=== PATIENT | male | born 1955 | race Caucasian/White ===

== ENCOUNTER 2021-11-29 12:15 | Outpatient (CLI) | payer OTHER, SELFPAY ==
--- NOTE | ~2021-11-29 | XR_ITS ---
EXAMINATION: XR hip RT min 2V DATE: 11/29/2021 12:50 INDICATION: Right hip pain. TECHNIQUE: 2 views of right hip were obtained. COMPARISON: None. FINDINGS: Bone alignment is normal. No fracture. There is advanced right hip osteoarthritis including flattening of superior femoral head. IMPRESSION: 1. Advanced right hip osteoarthritis. Reviewed, dictated and finalized at location E. CAL IMAGING TECHNOLOGIST
--- NOTE | ~2021-11-29 | XR_ITS ---
EXAMINATION: XR femur RT min 2V DATE: 11/29/2021 12:51 INDICATION: Right hip pain. TECHNIQUE: 2 views of right femur on 4 radiographs were obtained. COMPARISON: None. FINDINGS: Bone alignment is normal. No fracture. There is advanced right hip osteoarthritis. There is mild tricompartmental osteoarthritis of the knee. No knee joint effusion. IMPRESSION: 1. Advanced right hip osteoarthritis and mild right knee osteoarthritis. Reviewed, dictated and finalized at location E. STRIAL RELATIONS COMMISSIONER
== END 2021-11-29 12:16 | disposition home or self-care (01) ==
PROVIDERS: PCP Physician Assistant; Visit Provider Physician Assistant
DX: M16.11 Unilateral primary osteoarthritis, right hip (principal); M17.11 Unilateral primary osteoarthritis, right knee
CPT/HCPCS: 73502; 73552

== ENCOUNTER 2023-02-24 10:21 | Outpatient (CLI) | payer MEDICARE, SELFPAY ==
--- NOTE | 2023-02-24 10:41 | ECG_ITS ---
Measurements Intervals [place] Rate: 81 P: 47 ND: 161 QRS: -12 QRSD: 119 T: 32 QT: 357 QTc: 415 Interpretive Statements SINUS RHYTHM INTRAVENTRICULAR CONDUCTION DELAY BASELINE ARTIFACT- V4-V6 BORDERLINE ECG NO PREVIOUS ECG AVAILABLE FOR COMPARISON Electronically Signed On 02-24-2023 11:05:59 CDT by Julio Sanders D.O.
[2023-02-24 11:02] LABS: Basophils Absolute Auto 0.1 K/mm3 (0.0-0.1); Basophils Percent Auto 0.8 % (0.2-1.2); Eosinophils Absolute Auto 0.3 K/mm3 (0-0.3); Eosinophils Percent Auto 2.2 % (0-4.4); Hematocrit 39.3 % (42.0-52.0); Hemoglobin 12.2 g/dL (14.0-18.0); Immature Granulocyte Absolute 0.04 K/mm3 (0.00-0.031); Immature Granulocyte Percent A 0.3 % (0-0.5); Lymphocytes Absolute Auto 2.37 K/mm3 (0.9-3.2); Lymphocytes Percent Auto 19.9 % (18.3-44.2); Mean Corpuscular Hemoglobin 28.9 pg (26-34); Mean Corpuscular Volume 93.1 fl (80-100); Mean Platelet Volume 8.9 fl (7.4-10.4); Monocytes Absolute Auto 0.8 K/mm3 (0.1-0.6); Monocytes Percent Auto 7.1 % (2.6-8.5); Neutrophils Absolute Auto 8.3 K/mm3 (1.3-6.7); Neutrophils Percent Auto 69.7 % (45.5-73.1); Platelet Count Result 406 k/mm3 (150-375); Red Blood Count 4.22 M/mm3 (4.6-6.20); Red Cell Distribution Width 13.7 % (11.5-14.5); White Blood Count 11.9 K/mm3 (4.5-10.0)
[2023-02-24 11:10] LABS: Appearance Urine Clear (Clear); Bilirubin Urine Negative (Negative); Blood Urine Negative (Negative); Color Urine Yellow (Yellow); Glucose Urine UA Negative (Negative); Ketones Urine Negative (Negative); Leukocyte Esterase Ur Negative LEU/UL (Negative); Nitrate Urine Negative (Negative); Protein Urine Negative (Negative); Urobilinogen Urine 0.2 mg/dL (<2.0); pH Urine 5.5 (5.0-9.0)
[2023-02-24 11:14] LABS: Anion Gap 5 mmol/L (8-16); Blood Urea Nitrogen 17 mg/dL (9-20); Calcium 9.2 mg/dL (8.4-10.2); Carbon Dioxide 32 mmol/L (22-30); Chloride 102 mmol/L (98-107); Estimated Glomerular Filt Rate > 60; Glucose 98 mg/dL (65-110); Sodium 139 mmol/L (137-145)
[2023-02-24 11:21] LABS: Add Urine Microscopic? NO
== END 2023-02-24 10:22 | disposition home or self-care (01) ==
PROVIDERS: PCP Physician Assistant; Visit Provider Orthopaedic Surgery
DX: M17.11 Unilateral primary osteoarthritis, right knee (principal); I10 Essential (primary) hypertension; I45.9 Conduction disorder, unspecified
CPT/HCPCS: 36415; 80048; 81003; 85025; 93005

== ENCOUNTER 2023-02-25 09:42 | Outpatient (CLI) | payer MEDICARE, SELFPAY ==
[2023-02-25 10:53] LABS: Albumin Level 4.2 g/dL (3.5-5.1)
[2023-02-25 10:57] LABS: Prothrombin Time 13.2 Seconds (11.1-14.7)
[2023-02-25 10:58] LABS: Partial Thromboplastin Time 27.7 SECONDS (22.3-36.8)
[2023-02-25 11:02] LABS: Urine Cotinine NEGATIVE
[2023-02-25 11:45] LABS: Hemoglobin A1C 5.8 % (<5.7)
== END 2023-02-25 09:43 | disposition home or self-care (01) ==
LOC: ANHSURGERY 09:47
PROVIDERS: PCP Physician Assistant; Visit Provider Orthopaedic Surgery
DX: M16.9 Osteoarthritis of hip, unspecified (principal); Z01.818 Encounter for other preprocedural examination
CPT/HCPCS: 80307; 82040; 83036; 85610; 85730; 87081

== ENCOUNTER 2023-03-12 01:46 | Day surgery (SDC) | payer MEDICARE, MEDICAID, SELFPAY ==
--- NOTE | 2023-02-25 09:50 | PC.NURSE ---
PRE-OP INSTRUCTIONS, PLEASE READ CAREFULLY Report to the Outpatient Waiting Room, entrance under the green pavilion located off [facility], at time _0600_ on date _03/12/23_. Planned Procedure Time: _0730_. PACK A SMALL OVERNIGHT BAG AND LEAVE IN THE CAR ALONG WITH YOUR WALKER IF YOU GET ONE BEFORE SURGERY Time changes happen often and if your time is changed the preop area will call you the afternoon before. - You and your visitor will be asked to self-screen and do not enter if you have any COVID symptoms. - A mask is optional within the hospital at this time. -VISITING HOURS 8AM-8PM Patients may have clear liquids (water, carbonated beverages, clear teas, apple juice) until 3 hours prior to surgery (0430 AM) with a maximum of 20 ounces. - No food from midnight until time of surgery Take the following medications with a SIP of water the morning of surgery: _AMLODIPINE_ DO NOT STOP ANY OF YOUR OTHER PRESCRIPTION MEDICATIONS PRIOR TO SURGERY ?EXCEPT THE FOLLOWING Medications to discontinue _MELOXICAM PER DR. LOCO'S INSTRUCTIONS_ Date to take last dose Please no make-up, nail ukrainian, hairspray, perfume, deodorant, or body powder the day of surgery. No jewelry (including any body piercings) or valuables the day of surgery, leave them at home. Please take a shower or bath the night before, or the morning of, surgery with an antibacterial soap. Wear comfortable, loose fitting clothing. - Jewelry must be removed prior to entering the operating room. Rings and piercings that are not removed may be cut off. - The hospital will not accept responsibility for valuables. - Please leave all valuables, including medications, at home the day of surgery. If you are going home after surgery, a licensed coal tram driver must drive you home. - NO public transportation without another adult if you receive anesthesia. - We recommend that an adult stay with you for 24 hours following discharge. - We also recommend that you do not drive, make important decision, drink alcoholic beverages, or take any drugs that were not prescribed by your health care provider for at least 24 hours after your discharge time. Follow any additional instructions given to you from your surgeon. CHLORHEXIDINE GLUCONATE (HIBICLENS) SHOWER DIRECTED *SOLAR ELECTRIC INSTALLER FROM PHARMACY If you or anyone in your household have experienced Covid symptoms in the past week, please notify your surgeon or the nurse liaison at the phone number below for possible testing. Instructions given to _PATIENT_and asked if any additional questions and then verbalized understanding. Patient advised to call surgeon office or pre surgery nurse liaison [phone] if any additional questions.
[2023-02-25 10:09] VITALS: BP 154/86; PULSE 80; RESP 20; TEMP 36.9; O2SAT 100; BMI 27.1
[2023-03-12] VITALS (14 sets, daily range): BP systolic 105–177; BP diastolic 63–85; PULSE 74–108; RESP 11–24; TEMP 35.7–36.8; O2SAT 96–100
--- NOTE | ~2023-03-12 | XR_ITS ---
EXAMINATION: XR hip RT min 2V DATE: 03/12/2023 10:30 INDICATION: Postoperative evaluation following right total hip arthroplasty] TECHNIQUE: Anteroposterior and lateral views of the right hip were obtained. COMPARISON: 02/24/2023 FINDINGS: Interval placement of a right total hip arthroplasty which appears well seated in near anatomic align ment. Expected subcutaneous gas in the postoperative bed. No fractures identified. IMPRESSION: 1. Right total hip arthroplasty, negative for postoperative purposes. Reviewed, dictated and finalized at location A.
[2023-03-12] MEDS: ACETAMINOPHEN 500 MG TABLET 1000 MG PO (06:26)
[2023-03-12] MEDS: LACTATED RINGERS 1,000 ML 30 ML IV CONT ×2 (06:40→10:43)
[2023-03-12 06:42] LABS: Mean Platelet Volume 8.8 fl (7.4-10.4); Platelet Count Result 358 k/mm3 (150-375)
--- NOTE | 2023-03-12 06:44 | P.PNAN_ITS ---
Anes - Initial Pre Proc Eval Procedure: Operation Date: 03/12/23 07:30 Proposed Procedures p Right Total Hip Arthroplasty - Tien Calderon MD Date/Time: 03/12/23 06:44 Surgeon: Tien Calderon MD Pre Op Diagnosis: Rt Hip DJD Patient Data Age: 67 Gender: M Height: 1.65 m Weight: 73.9 kg Last Vital Signs Temp 36.9 C 02/25/23 10:09 Pulse 80 02/25/23 10:09 Resp 20 02/25/23 10:09 BP 154/86 H 02/25/23 10:09 Pulse Ox 100 02/25/23 10:09 O2 Del Method Room Air 02/25/23 10:09 Allergies Allergy/AdvReac Type Severity Reaction Status Date / Time No Known Allergies Allergy Unknown Unknown Verified 03/12/23 06:14 Home Medications Medication Instructions Recorded Confirmed Type amlodipine 10 mg tablet 10 mg PO DAILY 02/25/23 03/12/23 History atorvastatin 40 mg tablet 40 mg PO DAILY 02/25/23 03/12/23 History chlorhexidine gluconate 4 % 1 applic topical ONCE #237 mL 02/25/23 03/12/23 Rx topical liquid (Hibiclens) hydrochlorothiazide 12.5 mg tablet 12.5 mg PO DAILY 02/25/23 03/12/23 History lisinopril 40 mg tablet 40 mg PO DAILY 02/25/23 03/12/23 History meloxicam 15 mg tablet 15 mg PO DAILY 02/25/23 03/12/23 History Laboratory Tests 03/12/23 06:23 WBC Pending Plt Count Pending MPV Pending Patient hx anesthesia problems: none Family hx anesthesia problems: none Results Review: All pre-operative results and documents have been reviewed as part of the pre- operative evaluation. [facility] Past Medical History Medical History (Updated 03/12/23 @ 06:45 by Fransisco Taylor MD) Broken arm (~1997) Hernia (~1999) HTN (hypertension) Hyperlipidemia Family History Family History Other Diabetes mellitus Hypertension Social History Social History Smoking status: Never smoker Second hand tobacco smoke exposure: No Alcohol intake: former Alcohol use details: STATES DRANK SOCIALLY - QUIT FALL 2020 Substance use: current Substance use type: marijuana Other substance usage details: MEDICAL MARIJUANA - 2 JOINTS/DAY Living arrangements: with family Additional living arrangements comments: LIVES WITH SISTER (TAYLOR) Occupation/Education: retired Gender identity (if verbalized by the patient): Male Spiritual care concerns: No Anes - Eval Final PreProcedure Day of Procedure 03/12/23 06:44 Patient weight: overweight Heart: regular rate and rhythm Lungs: clear to auscultation Airway: Mallampati scale class II Neurological: alert and oriented Last oral intake: >/= 8 hours ASA classification: II Emergent: no Anesthetic plan: proceed Anesthesia type and monitoring: general ETT and standard monitoring Results Review: All pre-operative results and documents have been reviewed as part of the pre- operative evaluation. Informed Consent: The patient's anesthetic plan and its attendant risks and benefits were discussed with the patient/family/POA. Questions were solicited and answers provided to the satisfaction of the patient/fam
[2023-03-12] MEDS: TRANEXAMIC ACID 1,000MG/ISO100 1,000 MG/100 ML BAG 200 MG IVPB (07:06)
--- NOTE | 2023-03-12 07:10 | WPDHPUPDATE1 ---
History and Physical Update Update Date/Time: 03/12/23 07:10 History and Physical has been reviewed, including an updated exam of the patient. There are NO changes in the patient's condition. Risks, benefits, and alternatives have been discussed and questions answered. Patient agrees to proceed with procedure.
--- NOTE | 2023-03-12 07:23 | SUR.PREOP ---
0720- REVIEWED PT WBC OF 13.[address] LOCO.
[2023-03-12] MEDS: ceFAZolin 2 GM/D5W 50 ML 2 GM/50 ML BAG IVPB ×3 (07:30→23:06)
--- NOTE | 2023-03-12 10:00 | W.PM.PROC2 ---
Procedure Note - Detailed Date of Procedure 03/12/23 Pre-op Diagnosis Rt Hip DJD Post-op Diagnosis Same Procedure Performed R JUAN Surgeon Tien Calderon MD Anesthesia General Description of Procedure THE PATIENT WAS TAKEN TO THE OPERATING ROOM IN STABLE CONDITION AND WAS PLACED IN THE LATERAL DECUBITUS AND THE RIGHT LOWER EXTREMITY WAS PREPPED AND DRAPED IN THE STERILE FASHION. INCISION WAS MADE IN THE POSTERIOR LATERAL SIDE OF THE HIP, DOWN TO THE FASCIA LAYER. THE FASCIA WAS INCISED. THE HIP WAS EXPOSED. THE SHORT EXTERNAL ROTATORS WERE EXPOSED. THE SCIATIC NERVE WAS IDENTIFIED. INCISION WAS MADE THROUGH THE SHORT EXTERNAL ROTATORS AND THE CAPSULE OF THE HIP JOINT. THE HIP WAS DISLOCATED. AN OSTEOTOMY WAS MADE TO THE FEMORAL NECK ABOUT 1 CM PROXIMAL TO THE LESSER TROCHANTER. THE ACETABULUM WAS EXPOSED. THERE WAS SEVERE DJD SEEN. THE ACETABULUM WAS REAMED TO 57 MM. A 57 MM TRIAL WAS PLACED IN 35 DEG OF ABDUCTION AND ANTEVERSION WAS IN ALIGNMENT WITH THE TRANS ACETABULAR LIGAMENT. THE FIT WAS EXCELLENT. THE TRIAL WAS REMOVED. A 58 MM BIOMET G7 COMPONENT WAS THEN TAPPED IN TO PLACE IN 35 DEG OF ABDUCTION AND ANTEVERSION IN ALIGNMENT WITH THE TRANSVERSE ACETABULAR LIGAMENT. THE FIT WAS EXCELLENT. THE ACETABULAR LINER WAS PLACED AND CHECKED FOR STABILITY. NEXT THE FEMUR WAS PREPARED WITH INITIAL CANAL FINDER THEN SEQUENTIAL BROACHING WITH A TAPERLOC HIP SYSTEM, UNTIL AN 8 BROACH FIT WELL IN 15 OF ANTEVERSION. A +3 HIGH OFFSET NECK WITH 36 MM HEAD TRIAL WAS PLACED. THE SHUCK TEST WAS EXCELLENT AND THE STABILITY IN FLEXION AND ROTATION WAS EXCELLENT. LEG LENGTHS WERE GROSSLY EQUAL. TRIALS WERE REMOVED. A BIOMET TAPERLOC 8 STEM WAS PLACED WITH A HIGH OFFSET NECK THE FIT WAS EXCELLENT IN 15 DEG OF ANTEVERSION. A +3 CERAMIC 36 MM FEMORAL HEAD WAS PLACED. THE HIP WAS TRIALED AND THE STABILITY WAS EXCELLENT WERE THE LEG LENGTHS AND THE SHUCK TEST. THE WOUND WAS IRRIGATED WITH STERILE BETADINE AND WATER FOR 3 MIN. THEN WASHED AGAIN. THE CAPSULE AND THE EXTERNAL ROTATORS WERE APPROXIMATED WITH NUMBER 1 VICRYL. THE FASCIA WITH No 2 QUIL AND THE SUB CUTANEOUS LAYER WITH 2-0 ABSORBABLE SUTURE WITH A RUNNING 3-0 SUBCUTICULAR LAYER WELL. DERMABOND WAS PLACED AND STERILE DRESSING WAS APPLIED. PATIENT WAS PLACED BACK ON TO THE SUPINE POSITION AND WAS EXTUBATED Estimated Blood Loss 150 Complications No immediate complications Condition Stable Disposition PACU
[2023-03-12] MEDS: fentaNYL CITRATE INJ (*CRX) 100 MCG/2 ML VIAL 25 MCG IV PUSH ×4 (10:46→10:58)
--- NOTE | 2023-03-12 11:30 | ADMGEN ---
This patient, Neel Rand, was admitted to 3 [facility] Surg Room 310-01. Patient/family oriented to hospital policies and general routines including ID bracelet, bed and alarms, visiting hours, pain management, procedures, bathroom and other care routines, personal items, smoking policy, room service/diet, and visiting hours. Information on how to activate the Rapid Response Team has been discussed. Patient/Family are encouraged to report perceived risks to care and to ask questions if they do not understand what they are told or what they should do.
[2023-03-12] MEDS: KETOROLAC 15 MG/ML VIAL (*BKC) IV PUSH ×3 (13:06→23:06)
--- NOTE | 2023-03-12 16:56 | PCPTNOTE ---
On 03/12/23, the student, [Ncihelle Ramírez], provided care and completed [facility] documentation on this patient. I have reviewed the student's documentation and agree with the findings.
[2023-03-12] MEDS: SENNA/DOCUSATE SODIUM TABLET 2 TAB PO (17:46)
--- NOTE | 2023-03-12 19:38 | PC.NURSE ---
Addendum entered by Jeri Vanegas RN 03/12/23 19:43: wrong pt Original Note: called to see if H&H needs rechecked per ELMO Villar 1 unit prbc ordered for total of 2 today, then recheck H&H x2 hours after infusion.
--- NOTE | 2023-03-12 19:44 | PC.NURSE ---
blood bank informed ordered packed rbc's on wrong pt
[2023-03-12] MEDS: ASPIRIN 325 MG ENTERIC TABLET PO (20:50)
[2023-03-12] MEDS: FAMOTIDINE 20 MG TABLET PO (20:50)
[2023-03-13 01:02] VITALS: BP 118/75; PULSE 76; RESP 20; TEMP 36.2; O2SAT 97
[2023-03-13 04:37] VITALS: BP 159/98; PULSE 91; RESP 20; TEMP 36; O2SAT 99
[2023-03-13] MEDS: KETOROLAC 15 MG/ML VIAL (*BKC) IV PUSH ×2 (05:41→12:35)
[2023-03-13] MEDS: ceFAZolin 2 GM/D5W 50 ML 2 GM/50 ML BAG IVPB (06:01)
[2023-03-13] MEDS: HYDROcodone/acetaminophen (*CRX) 7.5-325 MG TABLET 1 TAB PO (06:29)
[2023-03-13 06:34] LABS: Basophils Absolute Auto 0.1 K/mm3 (0.0-0.1); Basophils Percent Auto 0.4 % (0.2-1.2); Eosinophils Percent Auto 0.2 % (0-4.4); Hemoglobin 9.7 g/dL (14.0-18.0); Immature Granulocyte Absolute 0.11 K/mm3 (0.00-0.031); Immature Granulocyte Percent A 0.6 % (0-0.5); Lymphocytes Absolute Auto 2.56 K/mm3 (0.9-3.2); Lymphocytes Percent Auto 14.8 % (18.3-44.2); Mean Corpuscular HGB Conc 32.3 g/dl (32-36); Mean Corpuscular Hemoglobin 29.8 pg (26-34); Mean Platelet Volume 9.1 fl (7.4-10.4); Monocytes Absolute Auto 1.5 K/mm3 (0.1-0.6); Monocytes Percent Auto 8.8 % (2.6-8.5); Neutrophils Percent Auto 75.2 % (45.5-73.1); Platelet Count Result 375 k/mm3 (150-375); Red Blood Count 3.26 M/mm3 (4.6-6.20); White Blood Count 17.3 K/mm3 (4.5-10.0)
[2023-03-13 06:51] LABS: Anion Gap 5 mmol/L (8-16); Blood Urea Nitrogen 27 mg/dL (9-20); Calcium 8.5 mg/dL (8.4-10.2); Carbon Dioxide 32 mmol/L (22-30); Chloride 98 mmol/L (98-107); Estimated CRCL calculation 52 ml/min; Estimated Glomerular Filt Rate > 60; Glucose 106 mg/dL (65-110); Potassium 4.2 mmol/L (3.4-5.0); Sodium 135 mmol/L (137-145)
[2023-03-13 08:17] VITALS: BP 140/81; PULSE 84; RESP 16; TEMP 36.3; O2SAT 98
[2023-03-13] MEDS: hydroCHLOROthiazide 12.5 MG CAPSULE PO (09:41)
[2023-03-13] MEDS: ASPIRIN 325 MG ENTERIC TABLET PO (09:41)
[2023-03-13] MEDS: amLODIPine BESYLATE 5 MG TABLET 10 MG PO (09:41)
[2023-03-13] MEDS: lisinopriL 20 MG TABLET 40 MG PO (09:41)
[2023-03-13] MEDS: ATORVASTATIN 40 MG TABLET PO (09:41)
[2023-03-13] MEDS: SENNA/DOCUSATE SODIUM TABLET 2 TAB PO ×2 (09:41→17:02)
[2023-03-13] MEDS: FAMOTIDINE 20 MG TABLET PO (09:41)
[2023-03-13] MEDS: polyethylene glycoL 3350 17 GM POWD.PACK PO (09:42)
--- NOTE | 2023-03-13 11:37 | P.PNAN_ITS ---
Anes - Prog Note Post-Op Date/Time: 03/13/23 11:37 Cardiovascular status: normal Respiratory status: normal Airway patency: baseline Mental status: baseline Post-Op hydration status: normal Vital Signs: Last Vital Signs Temp 36.3 C L 03/13/23 08:17 Pulse 84 03/13/23 08:17 Resp 16 03/13/23 08:17 BP 140/81 03/13/23 08:17 Pulse Ox 98 03/13/23 08:17 O2 Del Method Room Air 03/13/23 10:00 O2 Flow Rate 2 03/12/23 14:15 Pain Score (VAS): 0 I/O: Intake & Output 03/12/23 03/13/23 03/13/23 23:59 07:59 15:59 Intake Total 570 0 Output Total 1100 Balance 570 -1100 0 Laboratory Tests 03/13/23 05:57 03/13/23 05:57 03/12/23 03/13/23 06:23 05:57 WBC 17.3 H RBC 3.26 L Hgb 9.7 L Hct 30.0 L MCV 92.0 MCH 29.8 MCHC 32.3 RDW 14.0 Plt Count 375 MPV 9.1 Immature Gran % (Auto) 0.6 H Neut % (Auto) 75.2 H Lymph % (Auto) 14.8 L [place] % (Auto) 8.8 H Eos % (Auto) 0.2 Baso % (Auto) 0.4 Lymph # (Auto) 2.56 [place] # (Auto) 1.5 H Eos # (Auto) 0.0 Baso # (Auto) 0.1 Abs Immat Gran (auto) 0.11 H Absolute Neuts (auto) 13.0 H Absolute Nucleated RBC 0.0 Nucleated RBC % 0.0 Sodium 135 L Potassium 4.2 Chloride 98 Carbon Dioxide 32 H Anion Gap 5 L BUN 27 H D Creatinine 1.10 Estim Creat Clear Calc 52 Estimated GFR > 60 Glucose 106 Calcium 8.5 Crossmatch See Detail Post-procedural complaints: none Patient Feedback: Patient satisfied with anesthetic care.
[2023-03-13 12:02] VITALS: BP 132/65; PULSE 97; RESP 12; TEMP 36.2; O2SAT 97
[2023-03-13 16:25] VITALS: BP 122/67; PULSE 92; RESP 18; TEMP 36.4; O2SAT 99
--- NOTE | 2023-03-13 18:17 | PM.DS ---
DS: Admitting Diagnosis Discharge Date 03/13/23 Admitting Diagnosis RIGHT HIP DJD DS: Discharge Diagnosis Discharge Diagnosis (1) Degenerative joint disease (DJD) of hip: Qualifiers: Osteoarthritis type: primary Laterality: right Qualified Code(s): M16.11 - Unilateral primary osteoarthritis, right hip Code(s): M16.9 - Osteoarthritis of hip, unspecified Status: Acute Plan POD 1 DOING WELL. GOOD PROGRESS WITH PT. OK TO DC HOME F/U IN 3 WEEKS DS: Summary Hospital Course Reason for hospitalization: R JUAN Hospital Course: PATIENT WAS ADMITTED S/P TOTAL HOME ARTHROPLASTY FOR POSTOPERATIVE MEDICAL MANAGEMENT, PAIN CONTROL AND MOBILIZATION WITH PHYSICAL AND OCCUPATIONAL THERAPY. THE PATIENT PROGRESSED WELL WITH PT/OT. LABS AND VITALS REMAINED STABLE AND PAIN WELL CONTROLLED. THE PATIENT HAS BEEN CLEARED TO BE DISCHARGED HOME. FOLLOW UP APPOINTMENT SCHEDULED. DISCHARGE INSTRUCTIONS DISCUSSED AT LENGTH WITH THE PATIENT. MEDICATIONS REVIEWED. Status at Discharge Cognitive/behavioral status at discharge: STABLE Functional status at discharge: uses cane/walker Overall status at discharge: patient is progressing back to baseline Time Spent with Patient Time attestation: Total time spent providing and/or coordinating discharge services: Exam Narrative: VSS AFEBRILE DRESSING DRY NV INTACT NEG HOMANS SIGN, THIGH AND CALF NON TENDER DS: Data Data Completed and Pending Labs on day of discharge: Labs from last 24 hours 03/13/23 03/12/23 05:57 06:23 WBC 17.3 H RBC 3.26 L Hgb 9.7 L Hct 30.0 L MCV 92.0 MCH 29.8 MCHC 32.3 RDW 14.0 Plt Count 375 MPV 9.1 Immature Gran % (Auto) 0.6 H Neut % (Auto) 75.2 H Lymph % (Auto) 14.8 L [place] % (Auto) 8.8 H Eos % (Auto) 0.2 Baso % (Auto) 0.4 Lymph # (Auto) 2.56 [place] # (Auto) 1.5 H Eos # (Auto) 0.0 Baso # (Auto) 0.1 Abs Immat Gran (auto) 0.11 H Absolute Neuts (auto) 13.0 H Absolute Nucleated RBC 0.0 Nucleated RBC % 0.0 Sodium 135 L Potassium 4.2 Chloride 98 Carbon Dioxide 32 H Anion Gap 5 L BUN 27 H D Creatinine 1.10 Estim Creat Clear Calc 52 Estimated GFR > 60 Glucose 106 Calcium 8.5 Crossmatch See Detail Procedures/Treatments: R JUAN Discharge Plan Discharge Attending physician on discharge: Tien Calderon Discharging Clinician: Tien Calderon Patient Disposition: Home Health Service Discharge Instructions: TIEN CALDERON M.D. [facility] [address] [place] [address] POST OPERATIVE DISCHARGE INSTRUCTIONS FOLLOWING TOTAL HIP REPLACEMENT SURGERY ? Your dressing will be changed prior to your discharge. You will be sent home with one additional dressing to be changed on post op day 7 by the home health RN. You may remove the dressing on post op day 14. Your incision was closed with dermabond, allow the dermabond to fall off naturally once your dressing is removed. Do not pull at the dermabond or disrupt incision healing. ? You may shower with your dressing but do not submerge in a bath tub. ? Do not drive or operate machinery until you are released by Dr. Calderon. ? Do not walk without a walker for any reason until you are released by Dr. Calderon. ? Continue to apply ice to the hip intermittently for additional pain relief. Protect your skin with a towel or pillow case. ? Unless otherwise instructed by Dr. Calderon you me be weight bearing as tolerated with your walker. ? Continue to follow strict total hip replacement precautions. ? Your first post op appointment was sent to you via mail preoperatively. If you have any questions or are unable to make your appointment, please contact our office for scheduling questions. ? Your medications have been sent to your pharmacy. You have been sent home with pain medication. We have also sent you with a stool softener
== END 2023-03-13 18:45 | disposition home or self-care (01) ==
LOC: ANHSURGERY 05:51 → ANH3MEDSUR 11:57
PROVIDERS: PCP Physician Assistant; Visit Provider Orthopaedic Surgery
PROC: (CPT 27130; principal; 2023-03-12 07:30)
DX: M16.11 Unilateral primary osteoarthritis, right hip (principal); M25.551 Pain in right hip
CPT/HCPCS: 27130; 36415; 73502; 80048; 80307; 82040; 83036; 85025; 85048; 85049; 85610; 85730; 86850; 86900; 86901; 87081; 97110; 97161; 97165; 97530; 97535; A9270; C1776; J0171; J0690; J1100; J1170; J1885; J2250; J2270; J2405; J2704; J2710; J2795; J3010; J7120

== ENCOUNTER 2023-04-15 14:06 | Outpatient (RCR) | payer MEDICARE, MEDICAID, SELFPAY ==
--- NOTE | 2023-04-15 15:45 | PTOPEVDC ---
Assessment and note entered by Sonny Lee, PT Thank you for referring Neel Rand to [facility].? An evaluation has been completed. No further treatment is needed. Evaluation Information Assessment Status Evaluation Diagnosis R JUAN Onset 03/12/23 Subjective Information Patient reports that he is having no issues with the hip and has stopped using the walker since seeing his surgeon. He does his exercises from home health and is going back to the gym to workout no hip areas of his body. Reports no pain and not sure why he is at physical therapy. Reported Pain Level Pain Score 0: Self Report Assessment PT Clinical Summary Galo is a 67 year old male coming into the clinic with a diagnosis of R JUAN. He appears to have good strength, balance, and endurance. Would like to work with him on his gait, but he reports he can handle it and same with exercises he can do at home with exercises from home health services or at the gym. Discharged from physical therapy per patient request. Plan of Care Treatment Frequency and Discharged from skilled physical therapy per Duration patient request
== END 2023-04-16 14:46 | disposition home or self-care (01) ==
LOC: ANHPT 14:06
PROVIDERS: PCP Physician Assistant; Visit Provider Orthopaedic Surgery
DX: Z47.1 Aftercare following joint replacement surgery (principal); Z96.641 Presence of right artificial hip joint
CPT/HCPCS: 97161

== ENCOUNTER 2024-05-26 00:46 | Day surgery (SDC) | payer MEDICARE, MEDICAID, SELFPAY ==
[2024-05-05 09:45] VITALS: BMI 25.1
[2024-05-26 11:13] VITALS: BP 145/92; PULSE 82; RESP 18; TEMP 35.9; O2SAT 99
[2024-05-26] MEDS: LACTATED RINGERS 1,000 ML 150 ML IV CONT (11:33)
--- NOTE | 2024-05-26 12:38 | WPDANESEPPF ---
Anes - Initial Pre Proc Eval Procedure: Operation Date: 05/26/24 12:30 Proposed Procedures p Colonoscopy - Travon Jeong MD Date/Time: 05/26/24 12:38 Surgeon: Travon Jeong MD Pre Op Diagnosis: Personal history colon polyps, Family history naya Patient Data Age: 68 Gender: M Height: 1.73 m Weight: 68.1 kg Last Vital Signs Temp 35.9 C L 05/26/24 11:13 Pulse 82 05/26/24 11:13 Resp 18 05/26/24 11:13 BP 145/92 H 05/26/24 11:13 Pulse Ox 99 05/26/24 11:13 O2 Del Method Room Air 05/26/24 11:13 Allergies Allergy/AdvReac Type Severity Reaction Status Date / Time No Known Allergies Allergy Unknown Unknown Verified 05/05/24 09:42 Home Medications Medication Instructions Recorded Confirmed Type amlodipine 10 mg tablet 10 mg PO DAILY 02/25/23 05/05/24 History atorvastatin 40 mg tablet 40 mg PO DAILY 02/25/23 05/05/24 History hydrochlorothiazide 12.5 mg tablet 12.5 mg PO DAILY 02/25/23 05/05/24 History lisinopril 40 mg tablet 40 mg PO DAILY 02/25/23 05/05/24 History Patient hx anesthesia problems: none Family hx anesthesia problems: none Results Review: All pre-operative results and documents have been reviewed as part of the pre-operative evaluation. [facility] Past Medical History Medical History Broken arm (~1997) Hernia (~1999) HTN (hypertension) Hyperlipidemia Surgical History Surgical History 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 Family History Family History Other Diabetes mellitus Hypertension Social History Social History Smoking status: Never smoker Second hand tobacco smoke exposure: No Alcohol intake: former Alcohol use details: STATES DRANK SOCIALLY - QUIT FALL 2020 Substance use: current Substance use type: marijuana Other substance usage details: MEDICAL MARIJUANA - 2 JOINTS/DAY Last use: 03/11/2023 Lack of Transportation: No Lack of Food: Never True Current Housing: I Have Housing Concerned About Future Housing: No Difficulty Paying Gas/Electric Bills: No Difficulty Paying for Meds: No Currently Unemployed: No Education: High School Diploma/GED Difficulty w/ Childcare or Family Care: No Living arrangements: with friend(s) Additional living arrangements comments: LIVES WITH SISTER (TAYLOR) Occupation/Education: retired Gender identity (if verbalized by the patient): Male Spiritual care concerns: No Anes - Eval Final PreProcedure Day of Procedure 05/26/24 12:38 Patient weight: normal Heart: regular rate and rhythm Lungs: clear to auscultation Airway: Mallampati scale class II Neurological: alert and oriented Last oral intake: >/= 8 hours ASA classification: III Emergent: no Anesthetic plan: proceed Anesthesia type and monitoring: general GIVS and standard monitoring Results Review: All pre-operative results and documents have been reviewed as part of the pre-operative evaluation. Informed Consent: The patient's anesthetic plan and its attendant risks and benefits were discussed with the patient/family/POA. Questions were solicited and answers provided to the satisfaction of the patient/family/POA.
--- NOTE | 2024-05-26 12:57 | PM.HPGS ---
History of Present Illness History of Present Illness Consent: Risks, benefits, and alternatives have been discussed and questions answered. Patient agrees to proceed with procedure. Chief complaint: Personal history colon polyps, Family history naya Narrative: Neel Rand is a 68 year old male here for colonoscopy, had polyp Review of Systems Review of Systems: All systems reviewed & are unremarkable except as noted in HPI and below PMFSH Past Medical History Medical History (Updated 05/26/24 @ 12:57 by Travon Jeong MD) Broken arm (~1997) Colon polyp Hernia (~1999) HTN (hypertension) Hyperlipidemia Surgical History Surgical History 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 Family History Family History Other Diabetes mellitus Hypertension Social History Social History Smoking status: Never smoker Second hand tobacco smoke exposure: No Alcohol intake: former Alcohol use details: STATES DRANK SOCIALLY - QUIT FALL 2020 Substance use: current Substance use type: marijuana Other substance usage details: MEDICAL MARIJUANA - 2 JOINTS/DAY Last use: 03/11/2023 Lack of Transportation: No Lack of Food: Never True Current Housing: I Have Housing Concerned About Future Housing: No Difficulty Paying Gas/Electric Bills: No Difficulty Paying for Meds: No Currently Unemployed: No Education: High School Diploma/GED Difficulty w/ Childcare or Family Care: No Living arrangements: with friend(s) Additional living arrangements comments: LIVES WITH SISTER (TAYLOR) Occupation/Education: retired Gender identity (if verbalized by the patient): Male Spiritual care concerns: No Meds Home Medications and Allergies Home Medications Medication Instructions Recorded Confirmed Type amlodipine 10 mg tablet 10 mg PO DAILY 02/25/23 05/05/24 History atorvastatin 40 mg tablet 40 mg PO DAILY 02/25/23 05/05/24 History hydrochlorothiazide 12.5 mg tablet 12.5 mg PO DAILY 02/25/23 05/05/24 History lisinopril 40 mg tablet 40 mg PO DAILY 02/25/23 05/05/24 History Allergies Allergy/AdvReac Type Severity Reaction Status Date / Time No Known Allergies Allergy Unknown Unknown Verified 05/05/24 09:42 Vital Signs Vital Signs - 24 hr 05/26/24 11:13 Temperature 96.7 F L Pulse Rate 82 Respiratory Rate 18 Blood Pressure 145/92 H Pulse Oximetry 99 Oxygen Delivery Room Air Exam Const: General: comfortable and no acute distress HENMT: Face/Nose/Sinus: Normal nares present Eyes: General: appearance normal, both eyes and all related structures Neck: Neck: no JVD Resp: Auscultation: clear to auscultation bilaterally Cardio: Rate: regular rate Rhythm: regular rhythm GI: Inspection: non-distended GI Palp: Yes Soft to palpation Skin: General skin exam: normal color Neuro: General: gait normal Speech: normal speech Extrem: General: normal to inspection Psych: Mental Status: mental status grossly normal Assessment and Plan Assessment and plan (1) Colon polyp: Code(s): K63.5 - Polyp of colon Status: Acute Assessment and Plan: colonoscopy
[2024-05-26 13:15] VITALS: BP 95/64; PULSE 81; RESP 18; O2SAT 99
[2024-05-26 13:25] VITALS: BP 102/65; PULSE 70; RESP 16; O2SAT 100
[2024-05-26 13:35] VITALS: BP 137/76; PULSE 78; RESP 18; O2SAT 100
== END 2024-05-26 13:43 | disposition home or self-care (01) ==
PROVIDERS: PCP Physician Assistant; Visit Provider Internal Medicine Gastroenterology
PROC: 0DJD8ZZ Inspection of Lower Intestinal Tract, Via Natural or Artificial Opening Endoscopic (ICD-10-PCS; CPT 45378; principal; 2024-05-26 12:30)
DX: Z12.11 Encounter for screening for malignant neoplasm of colon (principal); K57.30 Diverticulosis of large intestine without perforation or abscess without bleeding; K64.8 Other hemorrhoids; Z86.010 Personal history of colon polyps; Z80.0 Family history of malignant neoplasm of digestive organs; I10 Essential (primary) hypertension; E78.5 Hyperlipidemia, unspecified; F12.90 Cannabis use, unspecified, uncomplicated
CPT/HCPCS: G0105; J2001; J2704; J7120

== ENCOUNTER 2025-06-22 22:56 | Emergency (ER) | payer MEDICARE, SELFPAY ==
[2025-06-22] VITALS (10 sets, daily range): BP systolic 131–166; BP diastolic 83–88; PULSE 81–89; RESP 16–18; TEMP 36.4–36.8; O2SAT 95–98
[2025-06-23] VITALS (7 sets, daily range): BP systolic 139–155; BP diastolic 80–90; O2SAT 96–98
--- NOTE | 2025-06-23 00:35 | ED_ITS ---
HPI - Eye Problem General Chief complaint: Eye Problems Stated complaint: fell, left eye lac Time Seen by Provider: 06/23/25 00:23 History of Present Illness HPI Narrative: this is a 69-year-old male with history of hypertension who presents to the ED for fall and laceration over the left eye. Patient states that he was walking his dog when the dog jerked causing him to fall onto his left cheek. He noticed a laceration to his left cheek /high prompting him to come to the ED. Denies eye pain, headache, changes in vision. Related Data Home Medications ?Medication ?Instructions ?Recorded ?Confirmed ?Last Taken ?Type amlodipine 10 mg tablet 10 mg PO DAILY 02/25/2304/1903/11/23 History atorvastatin 40 mg tablet 40 mg PO DAILY 02/25/2304/1903/11/23 History hydrochlorothiazide 12.5 mg tablet 12.5 mg PO DAILY 05/05/24 03/11/23 History lisinopril 40 mg tablet 40 mg PO DAILY 02/25/2304/1903/11/23 History Allergies Allergy/AdvReac Type Severity Reaction Status Date / Time aspirin (From [employer] Back and Allergy Intermediate Anaphylaxis Verified 06/22/25 23:01 Body) caffeine (From [employer] Back Allergy Intermediate Anaphylaxis Verified 06/22/25 23:01 and Body) Review of Systems Review of Systems: Gen.: Denies fevers or chills Eyes: Denies eye pain or visual change ENT: Denies congestion Respiratory: Denies shortness of breath or cough CV: Denies chest pain or palpitations GI: Denies abdominal pain nausea, emesis or diarrhea denies burning, urgency, frequency or hematuria Musculoskeletal: Denies back pain or muscle pain Neuro: Denies numbness, tingling, weakness or focal weakness Skin: Denies rash Except as documented, all other systems reviewed and negative COUNT INCLUDES [facility] Past Medical History Medical History Colon polyp Hyperlipidemia HTN (hypertension) Broken arm (~1997) Hernia (~1999) Surgical History Surgical History 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 Family History Family History Other Diabetes mellitus Hypertension Social History Social History Smoking status: Never smoker Second hand tobacco smoke exposure: No Alcohol intake: former Alcohol use details: STATES DRANK SOCIALLY - QUIT FALL 2020 Substance use: current Substance use type: marijuana Other substance usage details: MEDICAL MARIJUANA - 2 JOINTS/DAY Last use: 03/11/2023 Lack of Transportation: No Lack of Food: Never True Current Housing: I Have Housing Concerned About Future Housing: No Difficulty Paying Gas/Electric Bills: No Difficulty Paying for Meds: No Currently Unemployed: No Education: High School Diploma/GED Difficulty w/ Childcare or Family Care: No Living arrangements: with friend(s) Additional living arrangements comments: LIVES WITH SISTER (TAYLOR) Occupation/Education: retired Gender identity (if verbalized by the patient): Male Spiritual care concerns: No Exam Narrative: APPEARANCE: No acute distress, nontoxic, resting in bed HEENT: Laceration to the left lower eyelid that does cross over the medial canthus with possibly some tearing over this. Normocephalic, atraumatic, OMM RESPIRATORY: No respiratory distress CARDIOVASCULAR: Appears well perfused ABDOMINAL: Nondistended MUSCULOSKELETAl: Moves all extremities. No obvious deformities NEURO: Awake and alert. SKIN:: Warm, dry. No rashes lesions or abrasions PSYCHIATRIC: Normal affect/mood, Course Vital Signs Vital signs: Vital Signs Temperature 97.6 F 06/22/25 22:57 Pulse Rate 89 06/22/25 22:57 Respiratory Rate 16 06/22/25 22:57 Blood Pressure 166/88 H 06/22/25 22:57 Pulse Oximetry 97 06/22/25 22:57 Oxygen Delivery Room Air 06/22/25 22:57 Temperature 98.3 F 06/22/25 23:08 Pulse Rate 81 06/22/25 23:08 Respiratory Rate 18 06/22/25 23:08 Blood Pressure 155/89 H 06/23/25 01:31 Pulse Oximetry 97 06/23/25 01:30 Oxygen Delivery Room Air 06/22/25 23:08 MDM - Eye Problem MDM Narrative Medical decision making narrative: 69-year-old male who presented to the ED for a fall and laceration of the left eye. On initial evaluation, patient was in no acute distress, afebrile, hemodynamically stable. He did have a 2 cm laceration over the left lower eyelid that does involve the medial canthus and possibly some tearing with possible tear duct involvement. This will require ophthalmologic evaluation and repair. Patient will be transferred to [facility] in ED to ED transfer. Accepted by Dr Domínguez. Patient transferred in a stable condition by POV, Medical Records Attestation: I reviewed the patient's medical records. Discharge Plan Discharge Clinical Impression: Eyelid laceration, left Qualifiers: Encounter type: initial encounter Qualified Code(s): S01.112A - Laceration without foreign body of left eyelid and periocular area, initial encounter Patient Disposition: Acute Care Hospital Condition: Serious Additional Instructions: go straight to the [facility] ED and ophthalmology will evaluate you there. Patient Language: Portuguese Prescriptions: No Action lisinopril 40 mg tablet 40 mg PO DAILY atorvastatin 40 mg tablet 40 mg PO DAILY hydrochlorothiazide 12.5 mg tablet 12.5 mg PO DAILY amlodipine 10 mg tablet 10 mg PO DAILY Follow-up/Referrals: Francisco,ELMO Tobar [Primary Care Provider, Unknown]
[2025-06-23] MEDS: TETANUS,DIPHTHERIA,AC PERTUSSIS ADULT (0.5 ML) BOOSTRIX IM (00:58)
--- OUTSIDE RECORDS SUMMARY | 2025-06-23 01:09 | XMS_ITS | Encounter Summary ---
Author Organization [facility] Address [address] [place] [address] Care Team Providers Care Ditch Rider Name Role Phone Unavailable Primary Care Provider Unavailabl e Encounter Details Date Type Department Care Team (Late st Contact Info) Description 06/23/2025 Telephone [facility] - Ophthalmology [address] [place] [address] Samuel Loco MD [address] [facility] [address] Social History Tobacco Use Types Packs/Day Years Used Date Smoking Tobacco: Never Assessed Sex and Gender Information Value Date Recorded Sex Assigned at Not on file 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
--- OUTSIDE RECORDS SUMMARY | 2025-06-23 01:54 | XMS_ITS | Encounter Summary ---
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
== END 2025-06-23 01:45 | disposition short-term general hospital (02) ==
PROVIDERS: Emergency Provider Student in an Organized Health Care Education/Training Program; PCP Physician Assistant
DX: S01.112A Laceration without foreign body of left eyelid and periocular area, initial encounter (principal); Z23 Encounter for immunization; I10 Essential (primary) hypertension; E78.5 Hyperlipidemia, unspecified; Z96.641 Presence of right artificial hip joint; Z86.0100 Personal history of colon polyps, unspecified; W18.39XA Other fall on same level, initial encounter; Y93.K1 Activity, walking an animal
CPT/HCPCS: 90471; 90715; 99282